=== PATIENT | male | born 1960 | race Caucasian/White ===

== ENCOUNTER 2018-04-14 14:14 | Emergency (ER) | payer OTHER ==
[2014-03-03 09:08] VITALS: Wt 99.8 kg
[~2018-04-14 14:14] MED LIST: ALBU8.5H12 IH; AMLO2.5T75 PO; ATEN-1 PO; ATEN100T93 PO; BUPXL150 PO; CITA-145 PO; CLON-333 PO; CLON-389 PO; CLOT15CR62 TP; DIA5 PO; DIAZ-305 PO; DULO30CA35 PO; FOLI-68 PO; GABA-490 PO; GABA-547 PO; GABA-549 PO; HYDR12.561 PO; HYDR25CA13 PO; HYDR25CA83 PO; HYDR2TAB74 PO; HYDR50CA47 PO; HYDR50CA48 PO; IBUP-1671 PO; IBUP600T22 PO; LEVO100T95 PO; LEVO50TA80 PO; LEVO88TA43 PO; LISI-362 PO; LISI5TAB25 PO; MAG-66 PO; MINE120C6 TP; MIRT-1 PO; MULT-1379 PO; MULT-865 PO; MULT1CAP59 PO; NIC10R INH; OMEP40CA48 PO; OMEP40CA79 PO; ONDA-2 PO; PANT40SU3 PO; PANT40TA65 PO; PENI-24 PO; PREVPACPT PO; QUET25TA PO; ROSU20TA23 PO; SUCR1TAB85 PO; THERA M PLUS T1 EACH PO; THIA100T62 PO; TRAZ100T31 PO; TRAZ50TA34 PO
--- NOTE | 2018-04-14 14:26 | ER Report ---
History and Physical Time Seen By MD: 14:24 HPI/ROS CHIEF COMPLAINT: Alcohol detox HISTORY OF PRESENT ILLNESS: This is a 58-year-old male who presents to the emergency department for alcohol detox. Patient states that he has had a severe alcohol problem over the last 4-5 years, has been sober for about 6 months at a time then we'll re-labs, states this is due to PTSD. Patient states that he began drinking about one month ago while on a cruise and has not been able to stop since then, he states over the last week or so he's been drinking about a 5th of whiskey a day. His last drink was about 5-6 hours ago. He also smokes marijuana, no other drugs. No active suicidal ideations however he does state that he does have moments where he just doesn't want to be around. Patient is anxious, tearful, shaking and hyperventilating. He does have intermittent nausea. He states over the last month or so he's also had some dyspnea, unsure if this is related to his anxiety and PTSD. No fevers or chills. No chest pain. No rashes. No hematuria or diarrhea. REVIEW OF SYSTEMS: Constitutional: No fever, no chills. Eyes: No discharge. ENT: No sore throat. Cardiovascular: No chest pain, no palpitations. Respiratory: As above. Gastrointestinal: As above. Genitourinary: No hematuria. Musculoskeletal: No back pain. Skin: No rashes. Neurological: No headache. Allergies: Coded Allergies: No Known Drug Allergies (Verified , 11/29/16) Home Meds Reported Medications Propranolol Hcl (PROPRANOLOL HCL) 20 Mg Tablet, 20 MG PO BID, TAB 04/14/18 Levothyroxine Sodium (LEVOTHYROXINE SODIUM) 100 Mcg Tablet, 100 MCG PO QDAY, TAB 04/14/18 Citalopram Hydrobromide (CITALOPRAM HBR) 20 Mg Tablet, 20 MG PO QDAY, #5 TAB 04/14/18 Clonidine Hcl (CLONIDINE HCL) 0.2 Mg Tablet, 0.2 MG PO TID, TAB 04/14/18 Discontinued Reported Medications Hydroxyzine Pamoate (VISTARIL) 50 Mg Capsule, 50-100 MG PO Q6H PRN for ANXIETY, CAPSULE 12/01/16 Diazepam (VALIUM) 5 Mg Tablet, 10 MG PO TID PRN for ANXIETY, #5 TAB 12/01/16 Nicotine (NICOTROL) 10 Mg/Inh Ctr, 10 MG INH PRN PRN for NICOTINE REPLACEMENT 12/01/16 Ibuprofen (MOTRIN IB) 200 Mg Tablet, 400 MG PO Q6H PRN for PAIN 12/01/16 Mag Hydrox/Al Hydrox/Simeth (MAALOX MAXIMUM STRENGTH SUSP) 355 Ml Oral.susp, 30 ML PO Q4H PRN for DYSPEPSIA 12/01/16 Multivitamin (MULTIVITAMINS) 1 Each Capsule, 1 EACH PO DAILY, CAPSULE 12/01/16 Mirtazapine (REMERON) 15 Mg Tablet, 15 MG PO QHS 12/01/16 Gabapentin (NEURONTIN) 300 Mg Capsule, 300 MG PO TID, CAPSULE 12/01/16 Duloxetine Hcl (CYMBALTA) 30 Mg Capsule.dr, 30 MG PO QDAY, #5 CAP 12/01/16 Levothyroxine Sodium (SYNTHROID) 88 Mcg Tablet, 88 MCG PO QAM 11/29/16 Atenolol (ATENOLOL) 50 Mg Tablet, 2 TAB PO QDAY, TAB 11/29/16 Penicillin V Potassium 500 Mg Tab (PENICILLIN V POTASSIUM 500 MG TAB) 500 Mg Tablet, 500 MG PO QID for 10 Days 03/05/14 Past Medical/Surgical History The patient has a past medical and surgical history of hypertension, asthma, GERD, hypothyroidism, smokes marijuana, drinks alcohol daily, depression, anxiety, PTSD, previous suicide attempt, tonsillectomy. Reviewed Nurses Notes: Yes Hx Smoking: Yes Smoking Status: Current: Some Days Smoker Exposure to Second Hand Smoke?: Yes Hx Substance Use Disorder: Yes (POT) Hx Alcohol Use: Yes Constitutional Vital Sign - Last 24 Hours 04/14/18 04/14/18 14:37 16:06 Temp 98.7 Pulse 97 99 Resp 20 14 B/P (MAP) 141/90 117/80 (92) Pulse Ox 96 99 O2 Delivery Room Air Nasal Cannula O2 Flow Rate 2 Physical Exam General Appearance: The patient is alert, has no immediate need for airway protection and no signs of toxicity, anxious. Eyes: Pupils equal and round no pallor or injection. ENT, Mouth: Mucous membranes are moist. Respiratory: There are no retractions, lungs are clear to auscultation. Cardiovascular: Regular rate and rhythm. Gastrointestinal: Abdomen is soft and non tender, no masses, bowel sounds normal. Neurological: Alert and oriented 4. Moving all extremities. Following all commands. No focal neuro deficits. Skin: Warm and dry, no rashes. Musculoskeletal: Neck is supple non tender. Extremities are nontender, nonswollen and have full range of motion. Psychological: The patient is tearful, making decent eye contact, forthcoming with much information, very anxious, shaky and cooperative. DIFFERENTIAL DIAGNOSIS: After history and physical exam differential diagnosis was considered for a call detox, delirium tremens, seizure, polysubstance abuse. Medical Decision Making Data Points Result Diagram: 04/14/18 1515 04/14/18 1515 Laboratory Hematology Test 04/14/18 14:39 04/14/18 15:15 Urine Color Yellow Urine Clarity Clear Urine pH 5.0 pH (4.8-9.5) Urine Specific [place] 1.018 Urine Protein 30 mg/dL (NEGATIVE) Urine Glucose (UA) Negative mg/dL (NEGATIVE) Urine Ketones 20 mg/dL (NEGATIVE) Urine Blood Small (NEGATIVE) Urine Nitrite Negative (NEGATIVE) Urine Bilirubin Negative (NEGATIVE) Urine Urobilinogen Negative mg/dL (0.2-1.9) Urine Leukocyte Esterase Negative (NEGATIVE) Urine RBC None /HPF (0-2/HPF) Urine WBC 1 /HPF (0-5/HPF) Urine Squamous Epithelial Cells Few /LPF (</=FEW) Urine Bacteria Negative /HPF (NONE-FEW) Urine Mucus Few /HPF (NONE-FEW) Urine Opiates Screen Negative Urine Barbiturates Screen Negative Ur Tricyclic Antidepressants Screen Positive Urine Phencyclidine Screen Negative Urine Amphetamines Screen Negative Urine Benzodiazepines Screen Negative Urine Cocaine Screen Negative Urine Cannabinoids Screen Positive Red Blood Count 5.23 M/uL (4.00-5.60) Mean Corpuscular Volume 93.4 fL (80.0-96.0) Mean Corpuscular Hemoglobin 31.8 pg (26.0-33.0) Mean Corpuscular Hemoglobin Concent 34.0 g/dL (32.0-36.0) Red Cell Distribution Width 14.8 % (11.5-14.5) Mean Platelet Volume 9.2 fL (7.2-11.1) Neutrophils (%) (Auto) 67.6 % (39.4-72.5) Lymphocytes (%) (Auto) 25.6 % (17.6-49.6) Monocytes (%) (Auto) 4.7 % (4.1-12.4) Eosinophils (%) (Auto) 0.9 % (0.4-6.7) Basophils (%) (Auto) 1.2 % (0.3-1.4) Nucleated RBC Relative Count (auto) 0.1 /100WBC Neutrophils # (Auto) 5.6 K/uL (2.0-7.4) Lymphocytes # (Auto) 2.1 K/uL (1.3-3.6) Monocytes # (Auto) 0.4 K/uL (0.3-1.0) Eosinophils # (Auto) 0.1 K/uL (0.0-0.5) Basophils # (Auto) 0.1 K/uL (0.0-0.1) Nucleated RBC Absolute Count (auto) 0.01 K/uL Sodium Level 137 mmol/L (137-145) Potassium Level 4.6 mmol/L (3.5-5.0) Chloride Level 98 mmol/L (98-107) Carbon Dioxide Level 21 mmol/L (22-30) Blood Urea Nitrogen 22 mg/dl (9-21) Creatinine 1.10 mg/dl (0.66-1.25) Glomerular Filtration Rate Calc > 60.0 Random Glucose 76 mg/dl (75-110) Calcium Level 9.1 mg/dl (8.4-10.2) Magnesium Level 1.8 mg/dl (1.7-2.2) Total Bilirubin 0.5 mg/dl (0.2-1.3) Aspartate Amino Transf (AST/SGOT) 59 U/L (0-35) Alanine Aminotransferase (ALT/SGPT) 59 U/L (0-56) Alkaline Phosphatase 122 U/L (0-126) Troponin I < 0.012 ng/ml Total Protein 7.4 g/dl (6.3-8.2) Albumin 4.4 g/dl (3.5-5.0) Salicylates Level < 10 mg/L Salicylate Last Dose Date unk Acetaminophen Level < 10 ug/ml Serum Alcohol 116 mg/dl Chemistry Test 04/14/18 14:39 04/14/18 15:15 Urine Color Yellow Urine Clarity Clear Urine pH 5.0 pH (4.8-9.5) Urine Specific [place] 1.018 Urine Protein 30 mg/dL (NEGATIVE) Urine Glucose (UA) Negative mg/dL (NEGATIVE) Urine Ketones 20 mg/dL (NEGATIVE) Urine Blood Small (NEGATIVE) Urine Nitrite Negative (NEGATIVE) Urine Bilirubin Negative (NEGATIVE) Urine Urobilinogen Negative mg/dL (0.2-1.9) Urine Leukocyte Esterase Negative (NEGATIVE) Urine RBC None /HPF (0-2/HPF) Urine WBC 1 /HPF (0-5/HPF) Urine Squamous Epithelial Cells Few /LPF (</=FEW) Urine Bacteria Negative /HPF (NONE-FEW) Urine Mucus Few /HPF (NONE-FEW) Urine Opiates Screen Negative Urine Barbiturates Screen Negative Ur Tricyclic Antidepressants Screen Positive Urine Phencyclidine Screen Negative Urine Amphetamines Screen Negative Urine Benzodiazepines Screen Negative Urine Cocaine Screen Negative Urine Cannabinoids Screen Positive White Blood Count 8.3 k/uL (4.5-11.0) Red Blood Count 5.23 M/uL (4.00-5.60) Hemoglobin 16.6 g/dL (14.0-18.0) Hematocrit 48.9 % (42.0-52.0) Mean Corpuscular Volume 93.4 fL (80.0-96.0) Mean Corpuscular Hemoglobin 31.8 pg (26.0-33.0) Mean Corpuscular Hemoglobin Concent 34.0 g/dL (32.0-36.0) Red Cell Distribution Width 14.8 % (11.5-14.5) Platelet Count 235 K/uL (150-450) Mean Platelet Volume 9.2 fL (7.2-11.1) Neutrophils (%) (Auto) 67.6 % (39.4-72.5) Lymphocytes (%) (Auto) 25.6 % (17.6-49.6) Monocytes (%) (Auto) 4.7 % (4.1-12.4) Eosinophils (%) (Auto) 0.9 % (0.4-6.7) Basophils (%) (Auto) 1.2 % (0.3-1.4) Nucleated RBC Relative Count (auto) 0.1 /100WBC Neutrophils # (Auto) 5.6 K/uL (2.0-7.4) Lymphocytes # (Auto) 2.1 K/uL (1.3-3.6) Monocytes # (Auto) 0.4 K/uL (0.3-1.0) Eosinophils # (Auto) 0.1 K/uL (0.0-0.5) Basophils # (Auto) 0.1 K/uL (0.0-0.1) Nucleated RBC Absolute Count (auto) 0.01 K/uL Glomerular Filtration Rate Calc > 60.0 Calcium Level 9.1 mg/dl (8.4-10.2) Magnesium Level 1.8 mg/dl (1.7-2.2) Total Bilirubin 0.5 mg/dl (0.2-1.3) Aspartate Amino Transf (AST/SGOT) 59 U/L (0-35) Alanine Aminotransferase (ALT/SGPT) 59 U/L (0-56) Alkaline Phosphatase 122 U/L (0-126) Troponin I < 0.012 ng/ml Total Protein 7.4 g/dl (6.3-8.2) Albumin 4.4 g/dl (3.5-5.0) Salicylates Level < 10 mg/L Salicylate Last Dose Date unk Acetaminophen Level < 10 ug/ml Serum Alcohol 116 mg/dl Toxicology Test 04/14/18 14:39 04/14/18 15:15 Urine Opiates Screen Negative Urine Barbiturates Screen Negative Ur Tricyclic Antidepressants Screen Positive Urine Phencyclidine Screen Negative Urine Amphetamines Screen Negative Urine Benzodiazepines Screen Negative Urine Cocaine Screen Negative Urine Cannabinoids Screen Positive Salicylates Level < 10 mg/L Salicylate Last Dose Date unk Acetaminophen Level < 10 ug/ml Serum Alcohol 116 mg/dl Urinalysis Test 04/14/18 14:39 Urine Color Yellow Urine Clarity Clear Urine pH 5.0 pH (4.8-9.5) Urine Specific [place] 1.018 Urine Protein 30 mg/dL (NEGATIVE) Urine Glucose (UA) Negative mg/dL (NEGATIVE) Urine Ketones 20 mg/dL (NEGATIVE) Urine Blood Small (NEGATIVE) Urine Nitrite Negative (NEGATIVE) Urine Bilirubin Negative (NEGATIVE) Urine Urobilinogen Negative mg/dL (0.2-1.9) Urine Leukocyte Esterase Negative (NEGATIVE) Urine RBC None /HPF (0-2/HPF) Urine WBC 1 /HPF (0-5/HPF) Urine Squamous Epithelial Cells Few /LPF (</=FEW) Urine Bacteria Negative /HPF (NONE-FEW) Urine Mucus Few /HPF (NONE-FEW) EKG/Imaging EKG Interpretation 12 lead EKG: Time of EKG 1455. Rhythm: Normal sinus rhythm, ventricular rate 95 bpm. [place]: normal QRS: normal ST segments: No ST depression or elevation identified. Imaging Location: [facility] Patient: King Figueroa : 1960 Visit/Account:[id number] Date of Sevice: 04/14/2018 EXAMINATION: Chest radiographs 2 views HISTORY: Detox and dyspnea. COMPARISON: 08/27/2013. FINDINGS: PA and lateral views of the chest are submitted. Lines/tubes: None. Lungs/pleura: No focal consolidation or pleural effusion. Heart: Negative. Mediastinum: Atherosclerotic calcifications of the aorta. Bony structures/body wall: Negative. IMPRESSION: No radiographic evidence of acute cardiopulmonary disease. Report Dictated By: Ayesha Bennett MD at 04/14/2018 4:23 PM Report E-Signed By: Ayesha Bennett MD at 04/14/2018 4:24 PM WSN:[id number] ED Course/Re-evaluation Clinical Indication for ER IV: Hydration, IV Access ED Course The patient was admitted to room. A history and physical were obtained. Differential diagnoses were considered. IV was started. A CBC, CMP and psych panel were obtained. A banana bag was given. 2 mg IV Ativan were given. 0.2 mg of clonidine were given.CBC unremarkable, chemistry showing CO2 21, AST 59, ALT 59, negative troponin, urine drug screen positive for tricyclics, positive for cannabis, serum alcohol 116, negative UA. Negative two-view chest x-ray. EKG showing normal sinus rhythm. I reviewed the laboratory studies with the patient. As the patient is requesting voluntary admission to the behavioral health unit I did contact Christiana Juarez as noted below, she is accepted the patient onto the unit. The patient remained cooperative while in the emergency department, he did have moments of anxiety and anxiousness. Patient was escorted to the behavioral health unit. I suspect the dyspnea that the patient has been having over the last month is secondary to his anxiety and PTSD. 04/14/2018 4:09:41 pm I did speak with Christiana Juarez, the therapist for donor relations manager, we discussed the case. the patient will be admitted to . Decision to Disposition Date: Apr 14, 2018 Decision to Disposition Time: 16:09 Depart Departure Latest Vital Signs Vital Signs Date Time Temp Pulse Resp B/P (MAP) Pulse Ox O2 Delivery O2 Flow Rate FiO2 04/14/18 16:06 99 14 117/80 (92) 99 Nasal Cannula 2 04/14/18 14:37 98.7 Impression: Primary Impression: Alcohol abuse Condition: Improved Disposition: XFER TO [facility] DADA SUTHERLAND-[place] Apr 14, 2018 14:26
[2018-04-14] MEDS ORDERED: THIAMINE HCL(*) 200 MG/2 ML IN 100 MG, FOLIC ACID(*) 50 MG/10 ML INJ 1 MG, MULTIVITAMIN... IV ONE (14:45)
[2018-04-14] MEDS ORDERED: LORazepam 2 MG/ML VIAL IVP ONE (14:45)
--- NOTE | 2018-04-14 15:01 | EKG ---
FACILITY: [facility] PATIENT NAME: RIRI ENRIQUE : [id number] MR: [id number] V: [id number] EXAM DATE: ORDERING PHYSICIAN: DADA SUTHERLAND TECHNOLOGIST: MIC Test Reason : ETOH Blood Pressure : / mmHG Vent. Rate : 095 BPM Atrial Rate : 095 BPM P-R Int : 180 ms QRS Dur : 088 ms QT Int : 348 ms P-R-T Axes : 067 062 051 degrees QTc Int : 437 ms Normal sinus rhythm Normal ECG When compared with ECG of 23-SEP-2013 14:37, No significant change was found Confirmed by Joshua Guevara ([id number]) on 04/14/2018 11:12:04 PM Referred By: DADA Confirmed By:Joshua Naqvi
[2018-04-14] MEDS ORDERED: cloNIDine HCL 0.1 MG TAB PO ONE ×2 (15:30→15:35)
[2018-04-14 15:36] LABS: PLATELET COUNT, AUTOMATED 235 K/uL (150-450)
[2018-04-14] MEDS ORDERED: CITA-145 PO ×2 (15:37→18:00)
[2018-04-14] MEDS ORDERED: PROP20TA56 PO ×2 (15:37→18:00)
[2018-04-14] MEDS ORDERED: CLON-329 PO (15:37)
[2018-04-14] MEDS ORDERED: LEVO-3 PO ×2 (15:37→18:00)
[2018-04-14 16:06] VITALS: BP 117/80
--- NOTE | 2018-04-14 16:28 | RADIOLOGY IMAGING REPORT ---
FACILITY: [facility] [place] PATIENT NAME: King Figueroa : 1960 MR: [id number] V: [id number] EXAM DATE: ORDERING PHYSICIAN: DADA SUTHERLAND TECHNOLOGIST: Location: [facility] [place] Patient: King Figueroa : 1960 Visit/Account:[id number] Date of Sevice: 04/14/2018 EXAMINATION: Chest radiographs 2 views HISTORY: Detox and dyspnea. COMPARISON: 08/27/2013. FINDINGS: PA and lateral views of the chest are submitted. Lines/tubes: None. Lungs/pleura: No focal consolidation or pleural effusion. Heart: Negative. Mediastinum: Atherosclerotic calcifications of the aorta. Bony structures/body wall: Negative. IMPRESSION: No radiographic evidence of acute cardiopulmonary disease. Report Dictated By: Ayesha Bennett MD at 04/14/2018 4:23 PM Report E-Signed By: Ayesha Bennett MD at 04/14/2018 4:24 PM WSN:[id number]
[2018-04-14] MEDS ORDERED: MELA3TAB31 PO (18:00)
[2018-04-14] MEDS ORDERED: CLON-327 PO (18:00)
[2018-04-14] MEDS ORDERED: LISI-362 PO (18:00)
[2018-04-15] MEDS ORDERED: CLON-329 PO (10:21)
[2018-04-15] MEDS ORDERED: MULT-1167 PO (10:24)
== END 2018-04-14 16:49 ==
LOC: ER 14:38
DX: F10.220 Alcohol dependence with intoxication, uncomplicated (principal); Y90.5 Blood alcohol level of 100-119 mg/100 ml
CPT/HCPCS: 71046; 80305; 80320; 80329; 81001; 83735; 84443; 84484; 85025; 93005; 96361; 96374; 99284; J2060; J3411; J3475; J7030; 82040; 82247; 82310; 82374; 82435; 82565; 82947; 84075; 84132; 84155; 84295; 84450; 84460; 84520

== ENCOUNTER 2018-04-14 16:16 | Inpatient (IN) | payer OTHER ==
[2014-03-03 09:08] VITALS: Ht 185.4 cm; Wt 95.3 kg
[~2018-04-14] VITALS: Ht 185.4 cm; Wt 95.3 kg
[~2018-04-14 16:16] MED LIST changes: +CLON-329 PO; +LEVO-3 PO; +PROP20TA56 PO
[2018-04-14] MEDS ORDERED: MAG HYD/AL HYD/SIMETH 30ML UDC PO PRN (16:35)
[2018-04-14 16:55] VITALS: BP 128/92
[2018-04-14] MEDS: NICOTINE POLACRILEX 2 MG GUM PO PRN ×2 (17:12→19:16)
[2018-04-14] MEDS: DIAZEPAM 10 MG TAB PO PRN ×5 (17:12→21:45)
[2018-04-14] MEDS ORDERED: LEVO-3 PO (18:00)
[2018-04-14] MEDS ORDERED: PROP20TA56 PO (18:00)
[2018-04-14] MEDS ORDERED: MELA3TAB31 PO (18:00)
[2018-04-14] MEDS ORDERED: LISI-362 PO (18:00)
[2018-04-14] MEDS ORDERED: CITA-145 PO (18:00)
[2018-04-14] MEDS ORDERED: CLON-327 PO (18:00)
[2018-04-14 20:20] VITALS: BP 127/73
[2018-04-14] MEDS: MELATONIN 3 MG TAB PO SCH (20:27)
[2018-04-14] MEDS: AMITRIPTYLINE HCL 25 MG TAB PO SCH (20:31)
[2018-04-14 21:40] VITALS: BP 116/71
[2018-04-15] MEDS: DIAZEPAM 10 MG TAB PO PRN ×7 (04:17→21:08)
[2018-04-15 05:55] VITALS: BP 130/90
[2018-04-15] MEDS: LEVOTHYROXINE SOD 0.1 MG TAB PO SCH (06:36)
[2018-04-15 08:03] VITALS: BP 148/106
[2018-04-15] MEDS: MULTIVITAMINS PO SCH (08:21)
[2018-04-15] MEDS: PROPRANOLOL HCL 20 MG TAB PO SCH (08:21)
[2018-04-15] MEDS: FOLIC ACID 1 MG TAB PO SCH (08:21)
[2018-04-15] MEDS: LISINOPRIL 10 MG TAB PO SCH (08:21)
[2018-04-15] MEDS: HYDROCHLOROTHIAZIDE 25 MG TAB PO SCH (08:21)
[2018-04-15] MEDS: THIAMINE HCL 100 MG TAB PO SCH (08:21)
[2018-04-15] MEDS ORDERED: CITALOPRAM HYDROBROM 20 MG TAB PO SCH (09:00)
[2018-04-15] MEDS: ASPIRIN 81 MG ENTERIC COATED PO SCH (10:14)
[2018-04-15] MEDS: cloNIDine HCL 0.1 MG TAB PO SCH ×2 (10:14→21:07)
[2018-04-15] MEDS: ESCITALOPRAM OXALATE 10 MG TAB PO SCH (10:14)
[2018-04-15] MEDS ORDERED: CLON-329 PO (10:21)
[2018-04-15] MEDS ORDERED: MULT-1167 PO (10:24)
[2018-04-15 11:15] VITALS: BP 82/67
[2018-04-15 17:04] VITALS: BP 105/70
[2018-04-15] MEDS ORDERED: PRAZOSIN HCL 5 MG CAP PO SCH (21:00)
[2018-04-15] MEDS ORDERED: PRAZOSIN HCL 5 MG CAP PO PRN (21:00)
[2018-04-15] MEDS: ATORVASTATIN 40 MG TAB PO SCH (21:00)
[2018-04-15] MEDS: RANITIDINE HCL 150 MG TAB PO SCH (21:06)
[2018-04-15] MEDS: AMITRIPTYLINE HCL 25 MG TAB PO SCH (21:07)
[2018-04-15] MEDS: MELATONIN 3 MG TAB PO SCH (21:07)
[2018-04-16] VITALS (7 sets, daily range): BP systolic 94–122; BP diastolic 56–94
[2018-04-16] MEDS: LEVOTHYROXINE SOD 0.1 MG TAB PO SCH (05:52)
[2018-04-16] MEDS: cloNIDine HCL 0.1 MG TAB PO SCH (08:16)
[2018-04-16] MEDS: ESCITALOPRAM OXALATE 10 MG TAB PO SCH (08:17)
[2018-04-16] MEDS: HYDROCHLOROTHIAZIDE 25 MG TAB PO SCH (08:17)
[2018-04-16] MEDS: FOLIC ACID 1 MG TAB PO SCH (08:17)
[2018-04-16] MEDS: LISINOPRIL 10 MG TAB PO SCH (08:17)
[2018-04-16] MEDS: PROPRANOLOL HCL 20 MG TAB PO SCH (08:17)
[2018-04-16] MEDS: ASPIRIN 81 MG ENTERIC COATED PO SCH (08:17)
[2018-04-16] MEDS: THIAMINE HCL 100 MG TAB PO SCH (08:17)
[2018-04-16] MEDS: MULTIVITAMINS PO SCH (08:17)
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
--- NOTE | 2018-04-16 11:50 | BHS Progress Note ---
[facility] - Subjective Progress Notes Subjective Patient is able to participate in therapy groups today, and remains pleasant and cooperative. Alcohol withdrawal ongoing. Will look into possible means to ensure sobriety upon discharge, no other concerns today. Will stop clonidine secondary to hypotension. Suicidal Ideation: None Homicidal Ideation: None [facility] - Objective Physical Exam Vital Signs Vital Signs Date Time Temp Pulse Resp B/P (MAP) Pulse Ox O2 Delivery O2 Flow Rate FiO2 04/16/18 08:05 97.3 101 18 118/72 (87) 92 Room Air 04/16/18 05:53 1.0 Muscle Strength and Tone: WNL Gait and Station: Unsteady [facility] Medications Reviewed: Side Effects, Benefits of Medication, Risks Allergies Reviewed: Yes Mental Status Exam General Appearance: Casual, Well Groomed, Good Eye Contact, Cooperative, Polite, Good Interaction; No Tearful; Psychomotor Agitation; No Psychomotor Retardation, No Bizarre Mannerisms, No Tics Speech: Clear, Spontaneous, Normal Rate, Normal Rhythm, Normal Volume, Normal Tone Mood: Dysthmic/Depressed (moored improving in absence of alcohol) Affect: Full and Appropriate; No Sad, No Flat, No Withdrawn, No Tearful, No Anxious, No Agitated Thought Process: Organized, Logical, Goal Directed; No Loose Associations, No Flight of Ideas Thought Content: No Suicidal Ideation, No Homicidal Ideation, No Delusions, No Auditory Halllucinations, No Visual Hallucinations, No Thought Broadcasting, No Ideas of Reference, No Obsessions, No Compulsions Sensorium: Clear Cognition: Alert & Oriented-Person, Alert & Oriented-Place, Alert & Oriented- Time, [id number] Memory: Immediate, Recent, Remote Intelligence: Average Insight Judgment: Fair (presents voluntarily for alcohol withdrawal treatment. ) [facility] Assessment and Plan [id number] Encounter Date: Apr 16, 2018 [id number] Encounter Time: 11:00 [facility] Plan: Necessary Precautions, Individual/Group Therapy, Admin/Titrate Meds, Educate Patient Tobacco Medications: Not Appropriate Condition Multpiple Antipsychotics Used: No Problems: (1) Alcohol withdrawal Status: Acute (2) Alcohol use disorder, severe, in controlled environment Status: Chronic (3) PTSD (post-traumatic stress disorder) Status: Chronic (4) Aspergers' syndrome Status: Chronic Condition 1. continue treatment. 2. look into treatment options upon discharge, through [facility] 3. stoop clonidine. CHAO PENA MD Apr 16, 2018 11:50
[2018-04-16] MEDS: NICOTINE POLACRILEX 2 MG GUM PO PRN ×2 (12:36→14:09)
[2018-04-16] MEDS: DIAZEPAM 10 MG TAB PO PRN ×6 (12:50→21:37)
[2018-04-16] MEDS: IBUPROFEN 600 MG TAB PO PRN (14:04)
[2018-04-16] MEDS ORDERED: NICOTINE CARTRIDGE 1 EA PO PRN (14:55)
[2018-04-16] MEDS: NICOTINE INH SYSTEM 10 MG/INH INH PRN ×3 (16:11→21:24)
[2018-04-16] MEDS: RANITIDINE HCL 150 MG TAB PO SCH (20:31)
[2018-04-16] MEDS: ATORVASTATIN 40 MG TAB PO SCH (20:31)
[2018-04-16] MEDS: AMITRIPTYLINE HCL 25 MG TAB PO SCH (20:31)
[2018-04-16] MEDS: MELATONIN 3 MG TAB PO SCH (21:00)
[2018-04-17] VITALS: BP 158/104
[2018-04-17] MEDS: DIAZEPAM 10 MG TAB PO PRN ×4 (00:08→05:38)
[2018-04-17 03:00] VITALS: BP 125/90
[2018-04-17] MEDS: IBUPROFEN 600 MG TAB PO PRN ×2 (03:31→10:00)
[2018-04-17] MEDS ORDERED: cloNIDine HCL 0.1 MG TAB PO ONE (05:15)
[2018-04-17 05:30] VITALS: BP 145/88
[2018-04-17] MEDS: NICOTINE INH SYSTEM 10 MG/INH INH PRN ×5 (05:39→16:08)
[2018-04-17] MEDS: LEVOTHYROXINE SOD 0.1 MG TAB PO SCH (05:41)
[2018-04-17] MEDS: MULTIVITAMINS PO SCH (08:06)
[2018-04-17] MEDS: ESCITALOPRAM OXALATE 10 MG TAB PO SCH (08:06)
[2018-04-17] MEDS: LISINOPRIL 10 MG TAB PO SCH (08:06)
[2018-04-17] MEDS: PROPRANOLOL HCL 20 MG TAB PO SCH (08:06)
[2018-04-17] MEDS: HYDROCHLOROTHIAZIDE 25 MG TAB PO SCH (08:06)
[2018-04-17] MEDS: FOLIC ACID 1 MG TAB PO SCH (08:06)
[2018-04-17] MEDS: THIAMINE HCL 100 MG TAB PO SCH (08:07)
[2018-04-17] MEDS: ASPIRIN 81 MG ENTERIC COATED PO SCH (08:20)
[2018-04-17 09:50] VITALS: BP 118/88
--- NOTE | 2018-04-17 10:00 | BHS Progress Note ---
[facility] - Subjective Progress Notes Subjective Patient's alcohol withdrawal ongoing, and patient admitting to significantly heavy cannabis use, [facility] and plan for [facility] on [facility]. Will add in clonidine as pressures tolerate. Suicidal Ideation: None Homicidal Ideation: None [facility] - Objective Physical Exam Vital Signs Vital Signs Date Time Temp Pulse Resp B/P (MAP) Pulse Ox O2 Delivery O2 Flow Rate FiO2 04/17/18 05:30 97.6 110 16 145/88 (107) 94 Nasal Cannula 1.0 Muscle Strength and Tone: WNL Gait and Station: Unsteady [facility] Medications Reviewed: Side Effects, Benefits of Medication, Risks Allergies Reviewed: Yes Mental Status Exam General Appearance: Casual, Well Groomed, Good Eye Contact, Cooperative, Polite, Good Interaction; No Tearful; Psychomotor Agitation; No Psychomotor Retardation, No Bizarre Mannerisms, No Tics Speech: Clear, Spontaneous, Normal Rate, Normal Rhythm, Normal Volume, Normal Tone Mood: Dysthmic/Depressed (mood improving in absence of alcohol and cannabis) Affect: Full and Appropriate; No Sad, No Flat, No Withdrawn, No Tearful, No Anxious, No Agitated Thought Process: Organized, Logical, Goal Directed; No Loose Associations, No Flight of Ideas Thought Content: No Suicidal Ideation, No Homicidal Ideation, No Delusions, No Auditory Halllucinations, No Visual Hallucinations, No Thought Broadcasting, No Ideas of Reference, No Obsessions, No Compulsions Sensorium: Clear Cognition: Alert & Oriented-Person, Alert & Oriented-Place, Alert & Oriented- Time, [place]fromfsd Memory: Immediate, Recent, Remote Intelligence: Average Insight Judgment: Fair (presents voluntarily for alcohol withdrawal treatment. ) [facility] Assessment and Plan [id number] Encounter Date: Apr 17, 2018 [id number] Encounter Time: 09:00 [facility] Plan: Necessary Precautions, Individual/Group Therapy, Admin/Titrate Meds, Educate Patient Tobacco Medications: Not Appropriate Condition Multpiple Antipsychotics Used: No Problems: (1) Alcohol withdrawal Status: Acute (2) Alcohol use disorder, severe, in controlled environment Status: Chronic (3) PTSD (post-traumatic stress disorder) Status: Chronic (4) Aspergers' syndrome Status: Chronic (5) Cannabis use disorder, severe, in controlled environment Status: Chronic Condition 1. continue treatment. 2. plan for discharge to [facility] care on Sunday. CHAO PENA MD Apr 17, 2018 10:00
[2018-04-17 13:50] VITALS: BP 128/78
[2018-04-17] MEDS: NICOTINE POLACRILEX 2 MG GUM PO PRN (18:24)
[2018-04-17 19:50] VITALS: BP 126/80
[2018-04-17] MEDS: MELATONIN 3 MG TAB PO SCH (21:33)
[2018-04-17] MEDS: RANITIDINE HCL 150 MG TAB PO SCH (21:33)
[2018-04-17] MEDS: cloNIDine HCL 0.1 MG TAB PO SCH (21:33)
[2018-04-17] MEDS: AMITRIPTYLINE HCL 25 MG TAB PO SCH (21:34)
[2018-04-17] MEDS: ATORVASTATIN 40 MG TAB PO SCH (21:34)
[2018-04-18 05:51] VITALS: BP 105/67
[2018-04-18] MEDS: LEVOTHYROXINE SOD 0.1 MG TAB PO SCH (05:51)
[2018-04-18] MEDS: NICOTINE POLACRILEX 2 MG GUM PO PRN ×3 (07:46→13:29)
[2018-04-18] MEDS: ASPIRIN 81 MG ENTERIC COATED PO SCH (08:03)
[2018-04-18] MEDS: FOLIC ACID 1 MG TAB PO SCH (08:03)
[2018-04-18] MEDS: cloNIDine HCL 0.1 MG TAB PO SCH (08:03)
[2018-04-18] MEDS: THIAMINE HCL 100 MG TAB PO SCH (08:04)
[2018-04-18] MEDS: MULTIVITAMINS PO SCH (08:04)
[2018-04-18] MEDS: LISINOPRIL 10 MG TAB PO SCH (08:04)
[2018-04-18] MEDS: HYDROCHLOROTHIAZIDE 25 MG TAB PO SCH (08:04)
[2018-04-18] MEDS: PROPRANOLOL HCL 20 MG TAB PO SCH (08:04)
[2018-04-18] MEDS: ESCITALOPRAM OXALATE 10 MG TAB PO SCH (08:04)
[2018-04-18 10:38] VITALS: BP 119/82
[2018-04-18] MEDS ORDERED: ASPI-1471 PO (11:54)
[2018-04-18] MEDS ORDERED: AMIT-106 PO (11:58)
[2018-04-18] MEDS ORDERED: HYDR-2966 PO (11:58)
[2018-04-18] MEDS ORDERED: ESCI20TA38 PO (12:02)
[2018-04-18] MEDS ORDERED: PROP20TA56 PO (12:02)
[2018-04-18] MEDS ORDERED: ATOR40TA24 PO (12:03)
[2018-04-18] MEDS ORDERED: MELA3TAB31 PO (12:04)
[2018-04-18] MEDS ORDERED: NICO-219 BC (12:08)
[2018-04-18] MEDS ORDERED: PRAZ5CAP16 PO (12:10)
--- NOTE | 2018-04-20 08:05 | SCHAAF DISCHARGE ---
DATE OF ADMISSION: April 14, 2018 DATE OF DISCHARGE: April 18, 2018 ATTENDING PHYSICIAN Alexander Cat MD The patient was seen at approximately 11:00 hours on April, for note concerning this dictation. FINAL DIAGNOSES 1. Alcohol use disorder, severe. 2. Alcohol withdrawal considered complete. 3. Cannabis use disorder, severe. 4. Autism Spectrum disorder, mild. 5. Post traumatic stress disorder. The patient having good follow up through the [facility]. REASON FOR ADMISSION This is a fairly well known 58-year-old male who reported a relatively recent relapse into alcohol use after signing up an ocean cruise. The patient the presenting voluntarily for alcohol withdrawal treatment and verbalizing a desire to abstain upon discharge. The patient overall polite and cooperative throughout his stay. Alcohol withdrawal was significant and treated to completion to Diazepam per [facility] protocol. The patient remained on other outpatient medications with good results. The patient continued to improve. The patient denying any suicidal ideation or significant depressive symptoms upon discharge and indicated a desire to continue to abstain from alcohol and [facility]. The patient was encouraged strongly to enter rehab through the [facility] system as well. PHYSICAL EXAMINATION Please see emergency room note. Notable for a 58-year-old male. Vital signs at the time of admission: Temperature 98.7, pulse 97, respiratory rate 20, blood pressure 141/90 and pulse oximetry 96% on room air. Vital signs at the time of discharge: Temperature 97.6, pulse 112, respiratory rate 16, blood pressure 119/82 and pulse oximetry 92% on room air. LABORATORY DATA CBC overall unremarkable. CMP notable for BUN elevated at 22 with an AST and an ALT both elevated at 59. Troponin was nondetectable and TSH 0.96 and in normal range. Urinalysis did show some urine blood present with protein present, otherwise unremarkable and ketones present, otherwise unremarkable. Toxicology screen positive for Tricyclics which patient is prescribed, positive for cannabis with a serum alcohol level of 116 upon admission. MENTAL STATUS EXAMINATION GENERAL APPEARANCE, BEHAVIOR AND ATTITUDE: At the time of discharge, this is pleasant, cooperative 58-year-old male making fair eye contact, interacting well with this provider and other treatment team staff. No bizarre mannerisms or tics and no periods of tearfulness. SPEECH: Within normal limits. Regular rate, rhythm, volume and tone. MOOD: Described as improved and good. AFFECT: Ful at times and mood-congruent. THOUGHT PROCESSES: Goal-directed, the patient would [facility], logical, no loose associations or flight of ideas. THOUGHT CONTENT: Free of auditory or visual hallucinations, ideas of reference, thought broadcastings, delusions, obsessions or compulsions. The patient is adamantly denying suicidal or homicidal ideation. SENSORIUM: Clear. COGNITION: Alert and oriented to person, place, time and situation. MEMORY: Immediate, recent and remote was estimated intact. INTELLIGENCE: Average, based on interview and previous knowledge of this patient. INSIGHT AND JUDGMENT: Considered grossly intact in the absence of alcohol or cannabis use. RESULTS OF TESTING Imaging: Chest x-ray was largely unremarkable with the exception of some aortic plaques. Please see electronic record. Laboratory data: See above. CONSULTATIONS None. TREATMENT Patient received medications, participated in individual and group therapy. HOSPITAL COURSE The patient's alcohol withdrawal was treated to completion with Diazepam per [facility] protocol. The patient's alcohol withdrawal was considered significant in nature, antihypertensive medications were held at times during the patient's withdrawal. These were gradually initiated at time of discharge. CONDITION OF PATIENT ON DISCHARGE Stable. Considered a minimal risk to himself or others, appropriate for ongoing outpatient care. DISPOSITION The patient was discharged to home. He would continue to abstain from alcohol and cannabis. [facility], encouraged [facility]. The Crisis line was given should symptoms. Outpatient medications at time of discharge included: Catapres 0.2 mg b.i.d., Ecotrin Aspirin 81 mg daily, Elavil 100 mg at bedtime, Hydrochlorothiazide 25 mg daily, Inderal 20 mg daily, Lexapro 20 mg daily, Lipitor 20 mg at bedtime, Melatonin 9 mg over the counter at bedtime, Prinivil 10 mg daily, Synthroid 100 mcg daily q am, Multivitamin with minerals daily, Minipress 5 mg at bedtime p.r.n. for nightmares. The patient was encouraged strongly to quit smoking and use nicotine replacement over the counter. The risks, benefits and alternatives of the above discharge plan were discussed. Informed consent was given to proceed with the above discharge plan by this competent patient. The Crisis line was given should symptoms return. [facility]
== END 2018-04-18 16:24 | disposition home or self-care (01) | DRG 897 ==
LOC: BHS 16:16
PROVIDERS: ADMIT Nurse Practitioner Psychiatric/Mental Health; ATTEND Nurse Practitioner Psychiatric/Mental Health
DX: F10.230 Alcohol dependence with withdrawal, uncomplicated (principal); F15.20 Other stimulant dependence, uncomplicated; F84.5 Asperger's syndrome; F43.12 Post-traumatic stress disorder, chronic; F32.9 Major depressive disorder, single episode, unspecified; Z91.410 Personal history of adult physical and sexual abuse; Z81.1 Family history of alcohol abuse and dependence; Z81.3 Family history of other psychoactive substance abuse and dependence; Z81.8 Family history of other mental and behavioral disorders; Y90.5 Blood alcohol level of 100-119 mg/100 ml

== ENCOUNTER 2018-10-08 13:03 | Inpatient (IN) | payer OTHER ==
[~2018-10-08] VITALS: Ht 188 cm; Wt 104.5 kg
[~2018-10-08 13:03] MED LIST changes: +AMIT-106 PO; +ASPI-1471 PO; +ATOR40TA24 PO; +CLON-327 PO; +ESCI20TA38 PO; +HYDR-2966 PO; +MELA3TAB31 PO; +MULT-1167 PO; +NICO-219 BC; +PRAZ5CAP16 PO; -TRAZ50TA34 PO; +TRAZ50TA52 PO
--- NOTE | 2018-10-08 13:12 | ER Report ---
History and Physical Time Seen By MD: 13:09 HPI/ROS CHIEF COMPLAINT: Alcohol abuse, anxiety, PTSD HISTORY OF PRESENT ILLNESS: 58-year-old male patient presents to emergency room with complaint of alcohol abuse, anxiety and PTSD. Patient states he is a and has been with PTSD for a number of years. He states he often uses alcohol to help cope with his anxiety and his PTSD. He states that he's been on a two-week body. States his been drinking proximal 1/5 of hard liquor a day. Patient denies having any fevers, chills, nausea, vomiting or diarrhea. Patient states that he has not been eating only been drinking approximately a Gatorade bottle in addition to his liquor. Patient states that he has not had any abdominal pain, chills. Patient states that he would like to be admitted to for help with his PTSD as well as his alcohol abuse. REVIEW OF SYSTEMS: Respiratory: No cough, no dyspnea. Cardiovascular: No chest pain, no palpitations. Gastrointestinal: No vomiting, no abdominal pain. Musculoskeletal: No back pain. Allergies: Coded Allergies: No Known Drug Allergies (Verified , 10/08/18) Home Meds Reported Medications Amitriptyline Hcl (AMITRIPTYLINE HCL) 50 Mg Tablet, 50 MG PO QHS, #5 TAB 10/08/18 Nicotine Polacrilex (NICORETTE) 2 Mg Gum, 2 MG BC Q1-2H PRN for NICOTINE REPLACEMENT, GUM 04/18/18 Atorvastatin Calcium (LIPITOR) 40 Mg Tablet, 20 MG PO QHS, TAB 04/18/18 Escitalopram Oxalate (LEXAPRO) 20 Mg Tablet, 20 MG PO QDAY, TAB 04/18/18 Amitriptyline Hcl (AMITRIPTYLINE HCL) 25 Mg Tablet, 100 MG PO QHS, #5 TAB 04/18/18 Aspirin (ASPIR 81) 81 Mg Tablet.dr, 81 MG PO QDAY, TAB 04/18/18 Multivitamin With Minerals (MEN'S ONE DAILY) 1 Each Tablet, 1 EACH PO QDAY 04/15/18 Clonidine Hcl (CLONIDINE HCL) 0.2 Mg Tablet, 0.2 MG PO BID, TAB 04/15/18 Melatonin (MELATONIN) 3 Mg Tablet, 9 MG PO QHS 04/14/18 Propranolol Hcl (PROPRANOLOL HCL) 20 Mg Tablet, 20 MG PO DAILY, TAB 04/14/18 Levothyroxine Sodium (LEVOTHYROXINE SODIUM) 100 Mcg Tablet, 100 MCG PO QDAY, TAB 04/14/18 Discontinued Reported Medications Prazosin Hcl (PRAZOSIN HCL) 5 Mg Capsule, 5 MG PO QHS PRN for NIGHTMARES, CAPSULE 04/18/18 Hydrochlorothiazide (HYDROCHLOROTHIAZIDE) 25 Mg Tablet, 1 TAB PO QDAY, TAB 04/18/18 Lisinopril (LISINOPRIL) 10 Mg Tablet, 10 MG PO QDAY, TAB 04/14/18 Past Medical/Surgical History Patient has a past medical history of CVA, hypertension, asthma, hypothyroidism, marijuana use, alcohol abuse, PTSD, anxiety. Patient states he does have a hard time being compliant with his medication. Patient has a surgical history of tonsillectomy. Patient has a family medical history of cancer. Reviewed Nurses Notes: Yes Hx Smoking: Yes Smoking Status: Current: Every Day Smoker Exposure to Second Hand Smoke?: Yes Hx Substance Use Disorder: Yes (POT) Hx Alcohol Use: Yes Constitutional Vital Sign - Last 24 Hours 10/08/18 10/08/18 10/08/18 10/08/18 13:04 13:09 13:21 13:30 Temp 98.9 Pulse 90 Resp 18 B/P (MAP) 148/125 (133) 148/120 149/78 (101) 133/93 (106) Pulse Ox 92 O2 Delivery Room Air 10/08/18 10/08/18 10/08/18 10/08/18 13:33 13:38 13:45 14:00 Pulse 90 91 B/P (MAP) 133/94 (107) 116/72 (87) Pulse Ox 92 90 10/08/18 10/08/18 10/08/18 10/08/18 14:05 14:08 14:15 14:20 Pulse 86 78 B/P (MAP) 130/87 (101) Pulse Ox 95 91 O2 Flow Rate 2.0 10/08/18 10/08/18 10/08/18 10/08/18 14:30 14:45 14:50 15:00 Pulse 81 B/P (MAP) 125/83 (97) 138/91 (107) 113/74 (87) Pulse Ox 88 10/08/18 10/08/18 10/08/18 10/08/18 15:15 15:20 15:30 15:45 Pulse 85 B/P (MAP) 120/77 (91) 97/65 (76) 104/72 (83) Pulse Ox 89 10/08/18 10/08/18 10/08/18 10/08/18 15:50 16:00 16:05 16:15 Pulse 86 87 B/P (MAP) 94/63 (73) 106/77 (87) Pulse Ox 91 91 10/08/18 10/08/18 10/08/18 10/08/18 16:30 16:35 16:45 16:54 Pulse 86 B/P (MAP) 122/84 (97) 134/93 (107) 141/103 (116) Pulse Ox 92 10/08/18 10/08/18 10/08/18 10/08/18 17:00 17:05 17:15 17:30 Pulse 88 B/P (MAP) 140/89 (106) 144/97 (113) 125/82 (96) Pulse Ox 93 10/08/18 17:35 Pulse 85 Pulse Ox 93 Physical Exam General Appearance: The patient is alert, has no immediate need for airway protection and no current signs of toxicity. Respiratory: Chest is non tender, lungs are clear to auscultation. Cardiac: regular rate and rhythm Gastrointestinal: Abdomen is soft and non tender, no masses, bowel sounds normal. Musculoskeletal: Neck: Neck is supple and non tender. Extremities have full range of motion and are non tender. Skin: No rashes or lesions. Psych: Patient does smell of alcohol, he is alert and oriented 4, patient is able to maintain eye contact during interview. Patient does not have any slurred speech. DIFFERENTIAL DIAGNOSIS: After history and physical exam differential diagnosis was considered for alcohol abuse, anxiety, PTSD. Medical Decision Making Data Points Result Diagram: 10/08/18 1300 10/08/18 1300 Laboratory Hematology Test 10/08/18 13:00 10/08/18 13:24 Red Blood Count 5.33 M/uL (4.00-5.60) Mean Corpuscular Volume 92.4 fL (80.0-96.0) Mean Corpuscular Hemoglobin 31.2 pg (26.0-33.0) Mean Corpuscular Hemoglobin Concent 33.8 g/dL (32.0-36.0) Red Cell Distribution Width 14.2 % (11.5-14.5) Mean Platelet Volume 8.8 fL (7.2-11.1) Neutrophils (%) (Auto) 72.3 % (39.4-72.5) Lymphocytes (%) (Auto) 21.0 % (17.6-49.6) Monocytes (%) (Auto) 5.4 % (4.1-12.4) Eosinophils (%) (Auto) 0.2 % (0.4-6.7) Basophils (%) (Auto) 1.1 % (0.3-1.4) Nucleated RBC Relative Count (auto) 0.1 /100WBC Neutrophils # (Auto) 5.0 K/uL (2.0-7.4) Lymphocytes # (Auto) 1.4 K/uL (1.3-3.6) Monocytes # (Auto) 0.4 K/uL (0.3-1.0) Eosinophils # (Auto) 0.0 K/uL (0.0-0.5) Basophils # (Auto) 0.1 K/uL (0.0-0.1) Nucleated RBC Absolute Count (auto) 0.01 K/uL Sodium Level 141 mmol/L (137-145) Potassium Level 4.3 mmol/L (3.5-5.0) Chloride Level 99 mmol/L (98-107) Carbon Dioxide Level 20 mmol/L (22-30) Blood Urea Nitrogen 12 mg/dl (9-21) Creatinine 1.10 mg/dl (0.66-1.25) Glomerular Filtration Rate Calc > 60.0 Random Glucose 107 mg/dl (75-110) Calcium Level 8.8 mg/dl (8.4-10.2) Magnesium Level 2.2 mg/dl (1.7-2.2) Total Bilirubin 0.7 mg/dl (0.2-1.3) Aspartate Amino Transf (AST/SGOT) 87 U/L (0-35) Alanine Aminotransferase (ALT/SGPT) 86 U/L (0-56) Alkaline Phosphatase 109 U/L (0-126) Total Protein 8.1 g/dl (6.3-8.2) Albumin 4.8 g/dl (3.5-5.0) Thyroid Stimulating Hormone (TSH) 0.79 uIU/ml (0.46-4.68) Salicylates Level < 10 mg/L Salicylate Last Dose Date unk Acetaminophen Level < 10 ug/ml Serum Alcohol 231 mg/dl Urine Color Yellow Urine Clarity Clear Urine pH 5.0 pH (4.8-9.5) Urine Specific [place] 1.023 Urine Protein 100 mg/dL (NEGATIVE) Urine Glucose (UA) Negative mg/dL (NEGATIVE) Urine Ketones 20 mg/dL (NEGATIVE) Urine Blood Small (NEGATIVE) Urine Nitrite Negative (NEGATIVE) Urine Bilirubin Negative (NEGATIVE) Urine Urobilinogen Negative mg/dL (0.2-1.9) Urine Leukocyte Esterase Negative (NEGATIVE) Urine RBC 1 /HPF (0-2/HPF) Urine WBC 1 /HPF (0-5/HPF) Urine Squamous Epithelial Cells None /LPF (</=FEW) Urine Bacteria Negative /HPF (NONE-FEW) Urine Mucus Few /HPF (NONE-FEW) Urine Opiates Screen Negative Urine Barbiturates Screen Negative Ur Tricyclic Antidepressants Screen Negative Urine Phencyclidine Screen Negative Urine Amphetamines Screen Negative Urine Benzodiazepines Screen Negative Urine Cocaine Screen Negative Urine Cannabinoids Screen Positive Chemistry Test 10/08/18 13:00 10/08/18 13:24 White Blood Count 6.9 k/uL (4.5-11.0) Red Blood Count 5.33 M/uL (4.00-5.60) Hemoglobin 16.6 g/dL (14.0-18.0) Hematocrit 49.3 % (42.0-52.0) Mean Corpuscular Volume 92.4 fL (80.0-96.0) Mean Corpuscular Hemoglobin 31.2 pg (26.0-33.0) Mean Corpuscular Hemoglobin Concent 33.8 g/dL (32.0-36.0) Red Cell Distribution Width 14.2 % (11.5-14.5) Platelet Count 181 K/uL (150-450) Mean Platelet Volume 8.8 fL (7.2-11.1) Neutrophils (%) (Auto) 72.3 % (39.4-72.5) Lymphocytes (%) (Auto) 21.0 % (17.6-49.6) Monocytes (%) (Auto) 5.4 % (4.1-12.4) Eosinophils (%) (Auto) 0.2 % (0.4-6.7) Basophils (%) (Auto) 1.1 % (0.3-1.4) Nucleated RBC Relative Count (auto) 0.1 /100WBC Neutrophils # (Auto) 5.0 K/uL (2.0-7.4) Lymphocytes # (Auto) 1.4 K/uL (1.3-3.6) Monocytes # (Auto) 0.4 K/uL (0.3-1.0) Eosinophils # (Auto) 0.0 K/uL (0.0-0.5) Basophils # (Auto) 0.1 K/uL (0.0-0.1) Nucleated RBC Absolute Count (auto) 0.01 K/uL Glomerular Filtration Rate Calc > 60.0 Calcium Level 8.8 mg/dl (8.4-10.2) Magnesium Level 2.2 mg/dl (1.7-2.2) Total Bilirubin 0.7 mg/dl (0.2-1.3) Aspartate Amino Transf (AST/SGOT) 87 U/L (0-35) Alanine Aminotransferase (ALT/SGPT) 86 U/L (0-56) Alkaline Phosphatase 109 U/L (0-126) Total Protein 8.1 g/dl (6.3-8.2) Albumin 4.8 g/dl (3.5-5.0) Thyroid Stimulating Hormone (TSH) 0.79 uIU/ml (0.46-4.68) Salicylates Level < 10 mg/L Salicylate Last Dose Date unk Acetaminophen Level < 10 ug/ml Serum Alcohol 231 mg/dl Urine Color Yellow Urine Clarity Clear Urine pH 5.0 pH (4.8-9.5) Urine Specific [place] 1.023 Urine Protein 100 mg/dL (NEGATIVE) Urine Glucose (UA) Negative mg/dL (NEGATIVE) Urine Ketones 20 mg/dL (NEGATIVE) Urine Blood Small (NEGATIVE) Urine Nitrite Negative (NEGATIVE) Urine Bilirubin Negative (NEGATIVE) Urine Urobilinogen Negative mg/dL (0.2-1.9) Urine Leukocyte Esterase Negative (NEGATIVE) Urine RBC 1 /HPF (0-2/HPF) Urine WBC 1 /HPF (0-5/HPF) Urine Squamous Epithelial Cells None /LPF (</=FEW) Urine Bacteria Negative /HPF (NONE-FEW) Urine Mucus Few /HPF (NONE-FEW) Urine Opiates Screen Negative Urine Barbiturates Screen Negative Ur Tricyclic Antidepressants Screen Negative Urine Phencyclidine Screen Negative Urine Amphetamines Screen Negative Urine Benzodiazepines Screen Negative Urine Cocaine Screen Negative Urine Cannabinoids Screen Positive Toxicology Test 10/08/18 13:00 10/08/18 13:24 Salicylates Level < 10 mg/L Salicylate Last Dose Date unk Acetaminophen Level < 10 ug/ml Serum Alcohol 231 mg/dl Urine Opiates Screen Negative Urine Barbiturates Screen Negative Ur Tricyclic Antidepressants Screen Negative Urine Phencyclidine Screen Negative Urine Amphetamines Screen Negative Urine Benzodiazepines Screen Negative Urine Cocaine Screen Negative Urine Cannabinoids Screen Positive Urinalysis Test 10/08/18 13:24 Urine Color Yellow Urine Clarity Clear Urine pH 5.0 pH (4.8-9.5) Urine Specific [place] 1.023 Urine Protein 100 mg/dL (NEGATIVE) Urine Glucose (UA) Negative mg/dL (NEGATIVE) Urine Ketones 20 mg/dL (NEGATIVE) Urine Blood Small (NEGATIVE) Urine Nitrite Negative (NEGATIVE) Urine Bilirubin Negative (NEGATIVE) Urine Urobilinogen Negative mg/dL (0.2-1.9) Urine Leukocyte Esterase Negative (NEGATIVE) Urine RBC 1 /HPF (0-2/HPF) Urine WBC 1 /HPF (0-5/HPF) Urine Squamous Epithelial Cells None /LPF (</=FEW) Urine Bacteria Negative /HPF (NONE-FEW) Urine Mucus Few /HPF (NONE-FEW) ED Course/Re-evaluation ED Course Patient was admitted on exam room, history of physical were obtained. Differential diagnoses were considered. On examination patient is obviously intoxicated, he smells of alcohol, rate of speech is appropriate he is able to maintain eye contact. Lungs are clear, heart is regular, abdomen soft nontender. Lab work for a behavioral health admission was done. We did call up to the behavioral health unit, and they state that they're not able to accept him as a patient at this time secondary to not having available. I discussed this with the patient. We discussed options, including transfer to [facility] or [place]. Patient states he prefer to go to [place] as he has been treated there for his alcohol abuse and PTSD in the past. A call was made, at this time there is noavailable. There was a meeting was held at 1500. They were not able to discharge the patient's this time and are expecting patient's only on a waiting list. I discussed this with the patient. He states that he would prefer to be admitted here. I discussed the case with Dr. Ni, hospitalist, who agreed to accept the patient for admission. I did call and speak with Dr. Aldana, psychiatrist, to inform him of the admission to the medical service and the fact that he will likely be consulted for the patient's PTSD. I discussed plan with patient who verbalized understanding and agreement. Decision to Disposition Date: Oct 08, 2018 Decision to Disposition Time: 17:46 Depart Departure Latest Vital Signs Vital Signs Date Time Temp Pulse Resp B/P (MAP) Pulse Ox O2 Delivery O2 Flow Rate FiO2 10/08/18 17:35 85 93 10/08/18 17:30 125/82 (96) 10/08/18 14:05 2.0 10/08/18 13:09 98.9 18 Room Air Impression: Primary Impression: Alcohol use disorder, severe, in controlled environment Condition: Improved Disposition: Admitted from ER [employer] Oct 08, 2018 13:12
[2018-10-08] MEDS ORDERED: NS(*) 0.9% 1000 ML BAG 1,000 ML IV ONE ×2 (13:20→19:05)
[2018-10-08] MEDS ORDERED: NICOTINE 21 MG/24 HR PATCH TD ONE (13:25)
[2018-10-08] MEDS ORDERED: NICOTINE POLACRILEX 2 MG GUM PO PRN (13:25)
[2018-10-08] MEDS ORDERED: PROPRANOLOL HCL 20 MG TAB PO ONE (13:25)
[2018-10-08] MEDS ORDERED: LORazepam 2 MG/ML VIAL IVP ONE ×2 (13:45→17:30)
[2018-10-08 13:46] LABS: PLATELET COUNT, AUTOMATED 181 K/uL (150-450)
[2018-10-08] MEDS ORDERED: DULoxetine HCL 20 MG CAPCR PO ONE (14:35)
[2018-10-08 18:19] VITALS: BP 143/94
[2018-10-08] MEDS ORDERED: AMIT-108 PO (18:33)
[2018-10-08] MEDS ORDERED: FLUSH 10 ML SYR IVP PRN (19:05)
[2018-10-08] MEDS ORDERED: ACETAMINOPHEN 325 MG TAB PO PRN (19:05)
--- NOTE | 2018-10-08 19:22 | History & Physical ---
History of Present Illness Chief Complaint alcohol abuse History of Present Illness 58M presented requesting help getting PTSD and alcohol abuse under control. PMHx significnat for PTSD, essential tremor, HTN, alcohol abuse, hypothyroid. Reports twice annual "benders" where he drinks more than usual 5th instead of pint daily. Usually gets help in [facility] but there were no beds available fro transfer. Was in [place] and reports PTSD from what happened there. EtOH 235 on presentation with signs of alcohol withdrawal. Reports thoughts he would be better off but denies SI. Admitted for EtOH withdrawal. History Problems: (1) Alcohol intoxication Status: Chronic (2) Depression Status: Chronic (3) PTSD (post-traumatic stress disorder) Status: Chronic (4) Cannabis use disorder, severe, in controlled environment Status: Chronic Home Meds Reported Medications Amitriptyline Hcl (AMITRIPTYLINE HCL) 50 Mg Tablet, 50 MG PO QHS, #5 TAB 10/08/18 Nicotine Polacrilex (NICORETTE) 2 Mg Gum, 2 MG BC Q1-2H PRN for NICOTINE REPLACEMENT, GUM 04/18/18 Atorvastatin Calcium (LIPITOR) 40 Mg Tablet, 20 MG PO QHS, TAB 04/18/18 Escitalopram Oxalate (LEXAPRO) 20 Mg Tablet, 20 MG PO QDAY, TAB 04/18/18 Amitriptyline Hcl (AMITRIPTYLINE HCL) 25 Mg Tablet, 100 MG PO QHS, #5 TAB 04/18/18 Aspirin (ASPIR 81) 81 Mg Tablet.dr, 81 MG PO QDAY, TAB 04/18/18 Multivitamin With Minerals (MEN'S ONE DAILY) 1 Each Tablet, 1 EACH PO QDAY 04/15/18 Clonidine Hcl (CLONIDINE HCL) 0.2 Mg Tablet, 0.2 MG PO BID, TAB 04/15/18 Melatonin (MELATONIN) 3 Mg Tablet, 9 MG PO QHS 04/14/18 Propranolol Hcl (PROPRANOLOL HCL) 20 Mg Tablet, 20 MG PO DAILY, TAB 04/14/18 Levothyroxine Sodium (LEVOTHYROXINE SODIUM) 100 Mcg Tablet, 100 MCG PO QDAY, TAB 04/14/18 Discontinued Reported Medications Prazosin Hcl (PRAZOSIN HCL) 5 Mg Capsule, 5 MG PO QHS PRN for NIGHTMARES, CAPSULE 04/18/18 Hydrochlorothiazide (HYDROCHLOROTHIAZIDE) 25 Mg Tablet, 1 TAB PO QDAY, TAB 04/18/18 Lisinopril (LISINOPRIL) 10 Mg Tablet, 10 MG PO QDAY, TAB 04/14/18 Allergies: Coded Allergies: No Known Drug Allergies (Verified , 10/08/18) Patient History: FH: CABG (coronary artery bypass surgery) FATHER FH: depression MOTHER Hx Smoking: Yes (cut down to 3 cigarettes per day) Smoking Status: Current: Every Day Smoker Exposure to Second Hand Smoke?: Yes Caffeine Intake: Coffee Caffeine/Cups Per Day: 3-4 Hx Alcohol Use: Yes Alcohol Use: Currently Alcohol Used: Liquor Alcohol Withdrawl Symptoms: Tremors, Nausea/Vomiting Hx Substance Use Disorder: Yes (POT) Social Drug Use: Currently Social Drugs: Marijuana Amount Of Social Drug/s Used: Tried marijuana once Review of Systems All Systems Reviewed/Normal: Yes, Except as Noted Cardiovascular: No Chest Pain Gastrointestinal: No Nausea, No Vomiting Musculoskeletal: Other (tremmor) Exam Vital Signs Vital Signs Date Time Temp Pulse Resp B/P (MAP) Pulse Ox O2 Delivery O2 Flow Rate FiO2 10/08/18 18:30 92 Nasal Cannula 2.0 10/08/18 18:19 98.0 93 16 143/94 (110) General Appearance: Alert, Awake, No Acute Distress, Afebrile Neuro: No Gross deficits Cardiovascular: Normal Rhythm & Peripheral Pulses Respiratory: No Respiratory Distress GI: Abd Soft and Non-Tender Musculoskeletal: No Weakness/Pain Extremities: Soft and Non Tender, Warm, Pulses, Perfused Medical Decision Making Data Points Result Diagram: 10/08/18 1300 10/08/18 1300 Assessment and Plan Problems: (1) Alcohol withdrawal Status: Acute Assessment & Plan: Will monitor on CIWA, thiamine, folate supplementation ordered. Reports visual hallucinations but appears to be completely oriented to person, place time. (2) Polysubstance abuse Assessment & Plan: Chronic EtOH, tobacco, marijuana user. (3) Alcohol intoxication Status: Chronic Assessment & Plan: BAL 235 on admission (4) PTSD (post-traumatic stress disorder) Status: Chronic Assessment & Plan: Will see if S can provide any recommendations on medication management. Venous Thromboembolism Antithrombotics Is Pt On Any Antithrombotics?: Yes Exam Sepsis Risk: No Definite Risk ALEXANDRO HOU DO Oct 08, 2018 19:22
[2018-10-08 19:27] VITALS: BP 141/83
[2018-10-08] MEDS: DIAZEPAM 10 MG TAB PO PRN ×4 (19:39→22:58)
[2018-10-08 20:52] VITALS: BP 145/103
[2018-10-08] MEDS: NICOTINE POLACRILEX 2 MG GUM PO PRN ×3 (20:54→22:58)
[2018-10-08] MEDS ORDERED: ATORVASTATIN 40 MG TAB PO SCH (21:00)
[2018-10-08] MEDS ORDERED: AMITRIPTYLINE HCL 25 MG TAB PO SCH (21:00)
[2018-10-08] MEDS: cloNIDine HCL 0.1 MG TAB PO SCH (21:24)
[2018-10-08 21:51] VITALS: BP 123/83
[2018-10-08] MEDS: PROPRANOLOL HCL 20 MG TAB PO SCH (22:23)
[2018-10-08 22:53] VITALS: BP 113/83
[2018-10-08 23:55] VITALS: BP 110/71
[2018-10-09] VITALS (7 sets, daily range): BP systolic 110–136; BP diastolic 73–100; Ht 188 cm; Wt 104.5 kg
[2018-10-09] MEDS: DIAZEPAM 10 MG TAB PO PRN ×7 (00:01→16:59)
[2018-10-09] MEDS: NICOTINE POLACRILEX 2 MG GUM PO PRN ×5 (04:25→16:59)
[2018-10-09] MEDS ORDERED: LEVOTHYROXINE SOD 0.1 MG TAB PO SCH (06:00)
[2018-10-09] MEDS: PROPRANOLOL HCL 20 MG TAB PO SCH (08:23)
[2018-10-09] MEDS: cloNIDine HCL 0.1 MG TAB PO SCH (08:23)
[2018-10-09] MEDS ORDERED: ENOXAPARIN 40 MG/0.4ML SYR SC SCH (09:00)
[2018-10-09] MEDS ORDERED: ASPIRIN 81 MG ENTERIC COATED PO SCH (09:00)
[2018-10-09] MEDS ORDERED: THIAMINE HCL 200 MG/2 ML INJ IVP SCH (09:00)
[2018-10-09] MEDS ORDERED: PROPRANOLOL HCL 20 MG TAB PO SCH (09:00)
[2018-10-09] MEDS ORDERED: FOLIC ACID 1 MG TAB PO SCH (09:00)
[2018-10-09] MEDS ORDERED: ESCITALOPRAM OXALATE 10 MG TAB PO SCH (09:00)
[2018-10-09] MEDS ORDERED: NICOTINE 21 MG/24 HR PATCH TD SCH (09:00)
--- NOTE | 2018-10-09 09:12 | Hospitalist Progress Note ---
Subjective Progress Notes Subjective He reports "I feel terrible". Achy, tremulous, peripheral neuropathy symptoms ("my feet burn...and then they are cold"). Physical Exam Vital Signs Date Time Temp Pulse Resp B/P (MAP) Pulse Ox O2 Delivery O2 Flow Rate FiO2 10/09/18 08:16 98.1 94 16 135/93 (107) 91 Nasal Cannula 2.0 Intake and Output 10/09/18 07:02 Intake Total 3460 ml Output Total 250 ml Balance 3210 ml Intake Oral 1460 ml IV Total 2000 ml Output Urine Total 250 ml # Voids 3 # Bowel Movements 1 General Appearance: Alert, Awake, Other (somewhat tremulous) Neuro: No Gross deficits Cardiovascular: Regular Rate and Rhythm Respiratory: Clear to Auscultation GI: Soft and Non-Tender Extremities: Warm, Pulses (PT WNL), Perfused Psych: Alert & Oriented X3 Result Diagram: 10/08/18 1300 10/08/18 1300 Assessment and Plan Problems: (1) Alcohol withdrawal Status: Acute Assessment & Plan: Will continue to monitor on CIWA protocol with Valium as needed for symptoms. He is on thiamine and folate supplementation. Psychiatry to see as he has significant psychiatric illness as well. (2) Polysubstance abuse Assessment & Plan: Chronic alcohol, tobacco, marijuana use. (3) Alcohol intoxication Status: Chronic Assessment & Plan: Blood alcohol level was 235 on admission. (4) PTSD (post-traumatic stress disorder) Status: Chronic Assessment & Plan: Will see if Psychiatry can help with any recommendations on medication management. Exam Sepsis Risk: No Definite Risk MASON OLMSTEAD MD Oct 09, 2018 09:12
[2018-10-09] MEDS ORDERED: THIA100T20 PO (14:50)
[2018-10-09] MEDS ORDERED: FOLI-68 PO (14:50)
--- NOTE | 2018-10-09 14:57 | Hospitalist Depart ---
Discharge Summary Reason for Hosp/Final Diag: (1) Alcohol withdrawal Status: Acute Hospital Course & Plan: He was admitted to the medical floor and monitored on CIWA protocol. He was treated with Valium as needed for symptoms. He was also placed on thiamine and folate supplementation. Psychiatry did see him as well as he has significant psychiatric illness as well. It was ultimately decided he would probably be best cared for on the [facility] unit and arrangements were made for transfer. (2) Polysubstance abuse Hospital Course & Plan: Chronic alcohol, tobacco, marijuana use. (3) Alcohol intoxication Status: Chronic Hospital Course & Plan: Blood alcohol level was 235 on admission. (4) PTSD (post-traumatic stress disorder) Status: Chronic Hospital Course & Plan: Psychiatry did see him while he was being treated on the medical floor to help with medication management. He was transferred to the [facility] unit for ongoing management. Departure Weight (Pounds): 230 Weight (Ounces): 5.0 Result Diagram: 10/08/18 1300 10/08/18 1300 Item Value Date Time Thyroid Stimulating Hormone (TSH) 0.79 uIU/ml 10/08/18 1300 Albumin 4.8 g/dl 10/08/18 1300 Total Protein 8.1 g/dl 10/08/18 1300 Alkaline Phosphatase 109 U/L 10/08/18 1300 Alanine Aminotransferase (ALT/SGPT) 86 U/L H 10/08/18 1300 Aspartate Amino Transf (AST/SGOT) 87 U/L H 10/08/18 1300 Total Bilirubin 0.7 mg/dl 10/08/18 1300 Magnesium Level 2.2 mg/dl 10/08/18 1300 Calcium Level 8.8 mg/dl 10/08/18 1300 Serum Alcohol 231 mg/dl 10/08/18 1300 Urine Cannabinoids Screen Positive 10/08/18 1324 Urine Cocaine Screen Negative 10/08/18 1324 Urine Benzodiazepines Screen Negative 10/08/18 1324 Urine Phencyclidine Screen Negative 10/08/18 1324 Urine Amphetamines Screen Negative 10/08/18 1324 Ur Tricyclic Antidepressants Screen Negative 10/08/18 1324 Urine Barbiturates Screen Negative 10/08/18 1324 Urine Opiates Screen Negative 10/08/18 1324 Salicylates Level < 10 mg/L 10/08/18 1300 Acetaminophen Level < 10 ug/ml 10/08/18 1300 Urine Mucus Few /HPF 10/08/18 1324 Urine Bacteria Negative /HPF 10/08/18 1324 Urine Squamous Epithelial Cells None /LPF 10/08/18 1324 Urine WBC 1 /HPF 10/08/18 1324 Urine RBC 1 /HPF 10/08/18 1324 Urine Leukocyte Esterase Negative 10/08/18 1324 Urine Urobilinogen Negative mg/dL 10/08/18 1324 Urine Bilirubin Negative 10/08/18 1324 Urine Nitrite Negative 10/08/18 1324 Urine Blood Small 10/08/18 1324 Urine Ketones 20 mg/dL H 10/08/18 1324 Urine Glucose (UA) Negative mg/dL 10/08/18 1324 Urine Protein 100 mg/dL 10/08/18 1324 Urine Specific Iselin 1.023 10/08/18 1324 Urine pH 5.0 pH 10/08/18 1324 Urine Clarity Clear 10/08/18 1324 Urine Color Yellow 10/08/18 1324 Condition: No Change Discharge: [facility] Time Spent: > 30 min Discharge Instructions Home Meds Active Scripts Thiamine Hcl (VITAMIN B-1) 100 Mg Tablet, 100 MG PO QDAY for 30 Days, #30 TAB Prov:MASON OLMSTEAD MD 10/09/18 Folic Acid (FOLIC ACID) 1 Mg Tablet, 1 MG PO QDAY for 30 Days, #30 TAB Prov:MASON OLMSTEAD MD 10/09/18 Reported Medications Nicotine Polacrilex (NICORETTE) 2 Mg Gum, 2 MG BC Q1-2H PRN for NICOTINE REPLACEMENT, GUM 04/18/18 Atorvastatin Calcium (LIPITOR) 40 Mg Tablet, 20 MG PO QHS, TAB 04/18/18 Escitalopram Oxalate (LEXAPRO) 20 Mg Tablet, 20 MG PO QDAY, TAB 04/18/18 Amitriptyline Hcl (AMITRIPTYLINE HCL) 25 Mg Tablet, 100 MG PO QHS, #5 TAB 04/18/18 Aspirin (ASPIR 81) 81 Mg Tablet.dr, 81 MG PO QDAY, TAB 04/18/18 Multivitamin With Minerals (MEN'S ONE DAILY) 1 Each Tablet, 1 EACH PO QDAY 04/15/18 Clonidine Hcl (CLONIDINE HCL) 0.2 Mg Tablet, 0.2 MG PO BID, TAB 04/15/18 Propranolol Hcl (PROPRANOLOL HCL) 20 Mg Tablet, 20 MG PO BID, TAB 04/14/18 Levothyroxine Sodium (LEVOTHYROXINE SODIUM) 100 Mcg Tablet, 100 MCG PO QDAY, TAB 04/14/18 Discontinued Reported Medications Amitriptyline Hcl (AMITRIPTYLINE HCL) 50 Mg Tablet, 50 MG PO QHS, #5 TAB 10/08/18 Melatonin (MELATONIN) 3 Mg Tablet, 9 MG PO QHS 04/14/18 Prazosin Hcl (PRAZOSIN HCL) 5 Mg Capsule, 5 MG PO QHS PRN for NIGHTMARES, CAPSULE 04/18/18 Hydrochlorothiazide (HYDROCHLOROTHIAZIDE) 25 Mg Tablet, 1 TAB PO QDAY, TAB 04/18/18 Lisinopril (LISINOPRIL) 10 Mg Tablet, 10 MG PO QDAY, TAB 04/14/18 Diet: Regular Activity: As Tolerated Special Instructions: He will be transferred to [facility] unit for ongoing management. Venous Thromboembolism Antithrombotics Is Pt On Any Antithrombotics?: Yes MASON OLMSTEAD MD Oct 09, 2018 14:57
[2018-10-09] MEDS ORDERED: AMITRIPTYLINE HCL 25 MG TAB PO SCH (21:00)
[2018-10-12] MEDS ORDERED: THIAMINE HCL 100 MG TAB PO SCH (09:00)
== END 2018-10-09 17:35 | DRG 897 ==
LOC: ER 13:15 → MED 17:50
PROVIDERS: ADMIT Internal Medicine; ATTEND Internal Medicine
DX: F10.229 Alcohol dependence with intoxication, unspecified (principal); F10.239 Alcohol dependence with withdrawal, unspecified; F12.10 Cannabis abuse, uncomplicated; F17.210 Nicotine dependence, cigarettes, uncomplicated; F43.12 Post-traumatic stress disorder, chronic; Y90.7 Blood alcohol level of 200-239 mg/100 ml; F41.9 Anxiety disorder, unspecified; G25.0 Essential tremor; I10 Essential (primary) hypertension; E03.9 Hypothyroidism, unspecified
CPT/HCPCS: 80305; 80320; 80329; 81001; 82040; 82247; 82310; 82374; 82435; 82565; 82947; 83735; 84075; 84132; 84155; 84295; 84443; 84450; 84460; 84520; 85025; 96361; 96374; 96376; 99285; J1650; J2060; J3411; J7030

== ENCOUNTER 2018-10-09 17:35 | Inpatient (IN) | payer OTHER ==
[~2018-10-09] VITALS: Ht 188 cm; Wt 108.9 kg
[2018-10-09 14:58] VITALS: Ht 188 cm; Wt 108.9 kg
[2018-10-09 17:30] VITALS: BP 144/94
[~2018-10-09 17:35] MED LIST changes: +AMIT-108 PO; +THIA100T20 PO
[2018-10-09] MEDS ORDERED: MAG HYD/AL HYD/SIMETH 30ML UDC PO PRN (18:20)
[2018-10-09] MEDS: NICOTINE POLACRILEX 2 MG GUM PO PRN ×2 (18:26→21:14)
[2018-10-09] MEDS: DIAZEPAM 10 MG TAB PO PRN ×3 (18:27→21:11)
[2018-10-09] MEDS: AMITRIPTYLINE HCL 25 MG TAB PO SCH (21:11)
[2018-10-09] MEDS: PROPRANOLOL HCL 20 MG TAB PO SCH (21:11)
[2018-10-09] MEDS: cloNIDine HCL 0.1 MG TAB PO SCH (21:11)
[2018-10-09] MEDS: ATORVASTATIN 40 MG TAB PO SCH (21:11)
[2018-10-09 21:16] VITALS: BP 154/90
[2018-10-10 02:20] VITALS: BP 128/93
[2018-10-10] MEDS: DIAZEPAM 10 MG TAB PO PRN ×6 (02:36→14:57)
[2018-10-10] MEDS: LEVOTHYROXINE SOD 0.1 MG TAB PO SCH (05:20)
[2018-10-10 07:50] VITALS: BP 131/79
[2018-10-10] MEDS: cloNIDine HCL 0.1 MG TAB PO SCH ×2 (08:05→20:31)
[2018-10-10] MEDS: THIAMINE HCL 100 MG TAB PO SCH (08:06)
[2018-10-10] MEDS: ESCITALOPRAM OXALATE 10 MG TAB PO SCH (08:06)
[2018-10-10] MEDS: ASPIRIN 81 MG ENTERIC COATED PO SCH (08:06)
[2018-10-10] MEDS: FOLIC ACID 1 MG TAB PO SCH (08:06)
[2018-10-10] MEDS: PROPRANOLOL HCL 20 MG TAB PO SCH ×2 (08:06→20:29)
[2018-10-10] MEDS: MULTIVITAMINS PO SCH (08:06)
[2018-10-10 11:40] VITALS: BP 140/84
[2018-10-10 13:50] VITALS: BP 140/94
[2018-10-10] MEDS: NICOTINE POLACRILEX 2 MG GUM PO PRN ×3 (14:28→17:42)
[2018-10-10] MEDS: IBUPROFEN 600 MG TAB PO PRN (16:27)
[2018-10-10 17:00] VITALS: BP 146/91
[2018-10-10 20:28] VITALS: BP 135/72
[2018-10-10] MEDS: ATORVASTATIN 40 MG TAB PO SCH (20:29)
[2018-10-10] MEDS: AMITRIPTYLINE HCL 25 MG TAB PO SCH (20:31)
[2018-10-11 04:30] VITALS: BP 135/78
[2018-10-11] MEDS: LEVOTHYROXINE SOD 0.1 MG TAB PO SCH (05:27)
[2018-10-11 08:00] VITALS: BP 124/90
[2018-10-11] MEDS: FOLIC ACID 1 MG TAB PO SCH (08:25)
[2018-10-11] MEDS: ESCITALOPRAM OXALATE 10 MG TAB PO SCH (08:25)
[2018-10-11] MEDS: cloNIDine HCL 0.1 MG TAB PO SCH (08:25)
[2018-10-11] MEDS: MULTIVITAMINS PO SCH (08:25)
[2018-10-11] MEDS: PROPRANOLOL HCL 20 MG TAB PO SCH (08:25)
[2018-10-11] MEDS: ASPIRIN 81 MG ENTERIC COATED PO SCH (08:25)
[2018-10-11] MEDS: THIAMINE HCL 100 MG TAB PO SCH (08:26)
[2018-10-11] MEDS: IBUPROFEN 600 MG TAB PO PRN (09:33)
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
[2018-10-11] MEDS: NICOTINE POLACRILEX 2 MG GUM PO PRN ×5 (10:20→17:37)
--- NOTE | 2018-10-11 10:32 | BHS Progress Note ---
[facility] - Subjective Progress Notes Subjective Patient's alcohol withdrawal now considered complete, however patient experiencing suicidal ideation today, with non active intent. Stating "I feel like I want to " , "what is the point of living if I continue to do this?". No medication changes, patient desires to transfer to [place], to resume treatment there. No other concerns. Suicidal Ideation: Ongoing Homicidal Ideation: None [facility] - Objective Physical Exam Vital Signs Vital Signs Date Time Temp Pulse Resp B/P (MAP) Pulse Ox O2 Delivery O2 Flow Rate FiO2 10/11/18 08:00 98.3 86 16 124/90 (101) 88 Room Air 10/11/18 04:30 2.0 Muscle Strength and Tone: WNL (much improved) Gait and Station: Steady [facility] Medications Reviewed: Side Effects, Benefits of Medication, Risks Allergies Reviewed: Yes Mental Status Exam General Appearance: Casual, Well Groomed, Good Eye Contact (fair baseline), Cooperative, Polite, Good Interaction; No Unkept, No Tearful; Psychomotor Agitation (minimal); No Psychomotor Retardation, No Bizarre Mannerisms, No Tics Speech: Clear, Spontaneous, Normal Rate, Normal Rhythm, Normal Volume, Normal Tone; No Slurred, No Garbled, No Rambling Mood: Dysthmic/Depressed; No Euthymic, No Hyperthymic Affect: Calm; No Withdrawn, No Tearful, No Anxious, No Agitated Thought Process: Organized, Logical, Goal Directed; No Loose Associations, No Flight of Ideas Thought Content: Suicidal Ideation (ongoing, no intent); No Homicidal Ideation, No Delusions, No Auditory Halllucinations, No Visual Hallucinations, No Thought Broadcasting, No Ideas of Reference, No Obsessions, No Compulsions Sensorium: Clear Cognition: Alert & Oriented-Person, Alert & Oriented-Place, Alert & Oriented- Time, [id number] Memory: Immediate, Recent, Remote Intelligence: Average Insight Judgment: Fair (fair in the absence of alcohol. ) [facility] Assessment and Plan [id number] Encounter Date: Oct 11, 2018 [id number] Encounter Time: 09:30 [facility] Plan: Necessary Precautions, Individual/Group Therapy, Admin/Titrate Meds Tobacco Medications: Started Problems: (1) Alcohol withdrawal Status: Resolved (2) PTSD (post-traumatic stress disorder) Status: Chronic (3) Alcohol use disorder, severe, in controlled environment Status: Chronic (4) Cannabis use disorder, severe, in controlled environment Status: Chronic Condition 1. appropriate for accompanied transfer to the [facility]. 2. Alcohol withdrawal considered complete. Problem Qualifiers (1) Alcohol withdrawal: Complication of substance-induced condition: uncomplicated Qualified Codes: F10.230 - Alcohol dependence with withdrawal, uncomplicated CHAO PENA MD Oct 11, 2018 10:32
[2018-10-11 12:10] VITALS: BP 141/100
[2018-10-11] MEDS ORDERED: CLON-393 PO (14:23)
[2018-10-11] MEDS ORDERED: IBUP600T22 PO (14:28)
[2018-10-11] MEDS: DIAZEPAM 10 MG TAB PO PRN (16:33)
[2018-10-11 17:18] VITALS: BP 142/92
[2018-10-12] MEDS ORDERED: THIAMINE HCL 100 MG TAB PO SCH (09:00)
--- NOTE | 2018-10-14 13:33 | TRANSFER SUMMARY ---
DATE OF ADMISSION: October 09, 2018 DATE OF DISCHARGE: October 11, 2018 DATE OF TRANSFER: To the [facility] [place] October 11, 2018 ATTENDING PHYSICIAN Alexander Cat MD The patient was seen at approximately 1200 hours on October 11, 2018 for note concerning this dictation. FINAL DIAGNOSIS 1. Alcohol use disorder, moderate to severe. 2. Alcohol withdrawal considered complete. 3. Cannabis use disorder, moderate. 4. Autism spectrum disorder, mild. 5. Post-traumatic stress disorder. 6. History of major depression. REASON FOR ADMISSION This is a fairly well-known 58-year-old male who has had long-term outpatient care through the [facility]. At this time, the patient was admitted through the [facility] emergency room for alcohol withdrawal. The patient reportedly had exited the [facility] program where he was in residential treatment. Please see H and P for full details. The patient arrived, was on the unit and alcohol withdrawal was treated to completion via [facility] protocol. The patient resumed current outpatient meds and interacted appropriately, requesting that he be able to transfer back to [place] to hopefully resume program that he left prematurely. The patient was cleared medically and transported there at the time of discharge. No suicidal behaviors were seen on the unit. No parasuicidal behaviors. The patient calm and cooperative throughout his stay. Alcohol withdrawal considered moderate in nature. Treated to completion. PHYSICAL EXAM Please see emergency room note. Notable for 58-year-old male. Vital signs at the time of admission: Temperature 98.0, pulse 93, respiratory rate 16, blood pressure 143/94, pulse oximetry 93% on 2 liters nasal cannula. At the time of transfer to [facility] in [place] the patient's vital showed: Temperature 98.8, pulse 94, respiratory rate 18, blood pressure 142/92, and pulse oximetry 94% on room air. LABORATORY DATA CBC unremarkable at the time of admission. CMP largely unremarkable as well with just a mild elevation in AST and ALT of 87 and 86 respectively. TSH 0.79 in normal range. Urinalysis showed urine ketones, small urine blood, protein present, otherwise unremarkable. Toxicology screen positive for cannabis with a serum alcohol of 231 on admission. MENTAL STATUS EXAMINATION GENERAL APPEARANCE, BEHAVIOR AND ATTITUDE: At the time of transfer to [facility] in [place], the patient calm, cooperative, polite. Thanking this provider for helping him. No psychomotor agitation or retardation. Fair eye contact is considered largely at baseline for this patient. No periods of tearfulness. SPEECH: Within normal limits, regular rate, rhythm, volume, and tone. MOOD: Described as okay. AFFECT: Full at times and mood congruent. THOUGHT PROCESSES: Logical and goal-directed. The patient able to indicate a full understanding of transferring to [facility] via aircraft. No loose associations or flight of ideas. THOUGHT CONTENT: Free of auditory or visual hallucinations, ideas of reference, thought broadcastings, delusions, obsessions, compulsions. The patient adamantly denying suicidal or homicidal ideation. SENSORIUM: Clear. COGNITION: Alert and oriented to person, place, time, and situation. MEMORY: Intact for immediate, recent and remote recall. INTELLIGENCE: Average, based on interview. INSIGHT AND JUDGMENT: Considered grossly intact in the absence of alcohol and cannabis use. RESULTS OF TESTING Imaging: None. Laboratory data: See above. CONSULTATIONS None. TREATMENT The patient received medications, participated in individual and group therapy. HOSPITAL COURSE Primary focus of treatment here at [facility] was the treatment of alcohol withdrawal to completion which was considerate moderate in nature and treated per [facility] protocol. The patient remained cooperative. Other medications were continued. The patient took an active role in individual and group therapy. CONDITION OF PATIENT ON DISCHARGE Stable. Considered a minimal risk to himself or others in the absence of alcohol or cannabis use. DISPOSITION The patient transferred to [facility]. He would follow up there. DISCHARGE MEDICATIONS 1. Catapres 0.2 mg b.i.d. 2. Aspirin enteric coated 81 mg daily. 3. Elavil 100 mg q. nightly. 4. Folic acid 1 mg daily. 5. Inderal 20 mg b.i.d. 6. Lexapro 20 mg daily. 7. Lipitor 20 mg at bedtime. 8. Synthroid 0.1 mg q. a.m. 9. Vitamin B1 100 mg daily. Risk, benefits and alternative to the above discharge plan were discussed. Informed consent was give to proceed with the above discharge plan by this patient and accepting facility. [facility]
== END 2018-10-11 17:45 | DRG 897 ==
LOC: BHS 17:35
PROVIDERS: ADMIT Psychiatry & Neurology Psychiatry; ATTEND Psychiatry & Neurology Psychiatry
DX: F10.239 Alcohol dependence with withdrawal, unspecified (principal); F84.0 Autistic disorder; R45.851 Suicidal ideations; F10.229 Alcohol dependence with intoxication, unspecified; F12.90 Cannabis use, unspecified, uncomplicated; Y90.7 Blood alcohol level of 200-239 mg/100 ml; F43.10 Post-traumatic stress disorder, unspecified

== ENCOUNTER → 2018-10-11 | Outpatient (CLI) | payer OTHER ==
[2018-10-09 14:58] VITALS: BMI 29.5
[~2018-10-11] MED LIST changes: +CLON-393 PO
== END ==
LOC: AMB 17:21
PROVIDERS: ATTEND Nurse Practitioner
DX: F10.20 Alcohol dependence, uncomplicated (principal); F41.9 Anxiety disorder, unspecified
CPT/HCPCS: A0425; A0428